=== PATIENT | female | born 1985 | race Caucasian/White ===

== ENCOUNTER 2016-10-24 07:19 | Inpatient (IN) | payer OTHER ==
[2016-10-24] MEDS ORDERED: Albuterol/Ipratropium RESP(NF) MDI (Combivent Respimat) INH PRN (09:17)
[2016-10-24] MEDS ORDERED: Penicillin G Potassium IV* 5,000,000 UNITS in NS 0.9% 100 ML* 100 ML IVPB ONE (09:19)
[2016-10-24] MEDS ORDERED: Dinoprostone* 10 MG VAG.SUPP VAGINAL ONE (09:40)
[2016-10-24 10:01] LABS: Hematocrit 35 % (35-47); Hemoglobin 12.1 g/dl (12.0-16.0); Mean Corpuscular HGB Conc 35 g/dl (31-36); Mean Corpuscular Hemoglobin 31 pg (27-31); Mean Corpuscular Volume 89 fL (80-97); Mean Platelet Volume 10 um3 (7.4-10.4); Red Cell Distribution Width 14 % (10.5-15); White Blood Count 13.5 10^3/ul (3.5-10.8)
[2016-10-24 10:03] LABS: Comments Flag Yes
[2016-10-24 13:36] LABS: Benzodiazepine Urine Screen None Detected (None Detect)
[2016-10-24] MEDS ORDERED: Calcium Carbonate CHEW TAB* 500 MG (TUMS) PO PRN (19:51)
[2016-10-24] MEDS ORDERED: Oxytocin in LR* 20 UNITS/1,000 ML BAG IVPB SCH (21:00)
[2016-10-24] MEDS ORDERED: OBEPIDURAL* 250 ML ONE (21:58)
[2016-10-24] MEDS ORDERED: Phenylephrine IV* 40 MCG/ML 10 ML SYRINGE IV PUSH PRN ×2 (23:15)
[2016-10-24] MEDS ORDERED: Sodium Citrate/Citric Acid* 15 ML UDC PO PRN (23:15)
[2016-10-24] MEDS ORDERED: Famotidine TAB* 20 MG PO PRN (23:15)
[2016-10-25] MEDS ORDERED: Dibucaine 1% 28.35 GM TUBE PR PRN (02:15)
[2016-10-25] MEDS ORDERED: Witch Hazel PAD* JAR TOPICAL PRN (02:15)
[2016-10-25] MEDS ORDERED: Oxytocin in LR* 20 UNITS/1,000 ML BAG IVPB SCH (03:00)
[2016-10-25] MEDS: OBEPIDURAL* 250 ML EPIDURAL SCH (05:40)
[2016-10-25] MEDS: Ibuprofen TAB* 600 MG PO PRN ×2 (06:44→21:01)
[2016-10-25] MEDS: Simethicone TAB* 80 MG TAB.CHEW PO SCH ×4 (07:55→21:01)
[2016-10-25] MEDS: Acetaminophen TAB* 325 MG PO PRN (07:55)
[2016-10-25] MEDS: Docusate CAP* 100 MG PO SCH ×3 (07:56→21:01)
[2016-10-25] MEDS ORDERED: Tetan/Diph/Pertus SYR(Tdap)* 0.5 ML SYR(BOOSTRIX) use SYR IM ONE (09:00)
[2016-10-25] MEDS ORDERED: Varicella Virus Vaccine Live* 0.5 ML VIAL SUBCUT ONE (09:00)
[2016-10-25] MEDS: oxyCODONE/Acetamin 5/325 MG* TAB PO PRN ×3 (12:45→21:01)
[2016-10-26] MEDS: oxyCODONE/Acetamin 5/325 MG* TAB PO PRN (01:02)
[2016-10-26] MEDS: OBEPIDURAL* 250 ML EPIDURAL SCH (03:16)
[2016-10-26 07:27] LABS: Hematocrit 34 % (35-47); Hemoglobin 11.5 g/dl (12.0-16.0); Mean Corpuscular HGB Conc 34 g/dl (31-36); Mean Corpuscular Hemoglobin 31 pg (27-31); Mean Corpuscular Volume 91 fL (80-97); Mean Platelet Volume 10 um3 (7.4-10.4); Red Blood Count 3.71 10^6/ul (4.0-5.4); Red Cell Distribution Width 14 % (10.5-15); White Blood Count 15.9 10^3/ul (3.5-10.8)
[2016-10-26] MEDS: Ferrous Gluconate TAB* 324 MG TAB PO SCH (07:50)
[2016-10-26] MEDS: Docusate CAP* 100 MG PO SCH ×3 (08:47→21:16)
[2016-10-26] MEDS: Ibuprofen TAB* 600 MG PO PRN ×3 (08:47→21:16)
[2016-10-26] MEDS: Acetaminophen TAB* 325 MG PO PRN (11:11)
[2016-10-26] MEDS ORDERED: oxyCODONE TAB* 5 MG TAB PO PRN (18:57)
[2016-10-27] MEDS: Ferrous Gluconate TAB* 324 MG TAB PO SCH (07:24)
[2016-10-27] MEDS: Penicillin G Potassium IV* 2,500,000 UNITS in NS 0.9% 100 ML* 100 ML IVPB SCH ×2 (07:35→07:37)
[2016-10-27] MEDS: Ibuprofen TAB* 600 MG PO PRN (08:02)
[2016-10-27] MEDS: Docusate CAP* 100 MG PO SCH (08:02)
[2016-10-27 08:26] VITALS: BP 122/76
== END 2016-10-27 10:13 | disposition home or self-care (01) | DRG 560 ==
LOC: MCHOBOUT 07:19 → MCHOB 09:18
PROVIDERS: ADMIT Obstetrics & Gynecology; ATTEND Obstetrics & Gynecology
PROC: 10E0XZZ Delivery of Products of Conception, External Approach (ICD-10-PCS; principal; 2016-10-25)
PROC: 3E033VJ Introduction of Other Hormone into Peripheral Vein, Percutaneous Approach (ICD-10-PCS; 2016-10-25)
PROC: 10907ZC Drainage of Amniotic Fluid, Therapeutic from Products of Conception, Via Natural or Artificial Opening (ICD-10-PCS; 2016-10-25)
DX: O36.5930 Maternal care for other known or suspected poor fetal growth, third trimester, not applicable or unspecified (principal); O99.344 Other mental disorders complicating childbirth; F32.9 Major depressive disorder, single episode, unspecified; O99.824 Streptococcus B carrier state complicating childbirth; O99.334 Smoking (tobacco) complicating childbirth; F17.210 Nicotine dependence, cigarettes, uncomplicated; O69.89X0 Labor and delivery complicated by other cord complications, not applicable or unspecified; Z3A.38 38 weeks gestation of pregnancy; Z37.0 Single live birth
CPT/HCPCS: 36415; 80307; 85025; 86850; 86900; 86901; 88307; 90715; A9270-GY; J2540

== ENCOUNTER → 2016-12-28 06:32 | Day surgery (SDC) | payer OTHER ==
[~2016-12-28 06:32] MED LIST: Buffered Lidocaine 1% SYRIN* 3 ML/SYR SYRINGE INTRADERM ONE; Bupivacaine 0.5% W/EPI SDV* 30 ML VIAL ONE; Dexamethasone IV* 4 MG/ML 1 ML (4 MG) IV SLOW PU ONE; Dexamethasone IV* 4 MG/ML 1 ML (4 MG) ONE; EPHEDrine (Pressors)* 50 MG/ML VIAL ONE; Famotidine IV* 10 MG/ML 2 ML (20 mg) IV ONE; Famotidine IV* 10 MG/ML 2 ML (20 mg) ONE; Glycopyrrolate IV* 0.2 MG/ML 1 ML VIAL ONE; Ibuprofen TAB* 600 MG PO PRN; Ketorolac INJ* 30 MG/ML 1 ML VIAL ONE; Levalbuterol 0.63MG/3ML NEB INH PRN; Lidocaine 2% PF* 5 ML VIAL ONE; Midazolam* 1 MG/ML 2 ML VIAL (2 MG) ONE; Ondansetron INJ* 2 MG/ML VIAL ONE; PROCHLORPERAZINE INJ 5 MG/ML 2 ML VIAL IV PRN; Propofol* 10 MG/ML 20 ML BTL IV PUSH ONE; Succinylcholine* 20 MG/ML 10 ML VIAL ONE; ceFAZolin 2 GM PREMIX(*) 2 GM/50 ML BAG IVPB ONE; fentaNYL* 50 MCG/ML 2 ML VIAL (100 MCG VIAL) IV PRN; fentaNYL* 50 MCG/ML 2 ML VIAL (100 MCG VIAL) ONE; oxyCODONE/Acetamin 5/325 MG* TAB PO PRN
[2016-12-28 09:53] VITALS: BP 110/68
--- NOTE | 2016-12-29 01:16 | OP ---
DATE OF OPERATION: 12/28/16 [facility] DATE OF : 87 SURGEON: Josiah Bruce MD STAFF FIELD ENGINEER: Brendan Morris MD ANESTHESIOLOGIST: Sole Godfrey MD ANESTHESIA: General endotracheal anesthesia. PRE-OP DIAGNOSIS: Multiparity, desires permanent sterilization. POST-OP DIAGNOSIS: Multiparity, desires permanent sterilization. OPERATIVE PROCEDURE: Laparoscopic tubal ligation. ESTIMATED BLOOD LOSS: Minimal, less than 20 cc. SPECIMENS: None. FLUIDS: Per Anesthesia. DRAINS: Choudhury catheter, 400 cc clear urine. FINDINGS: Midline uterus, normal-appearing fallopian tubes, and normal- appearing ovaries bilaterally. COMPLICATIONS: None. COUNTS: Sponge, lap, and needle count were correct x2. CONDITION: The patient tolerated well, brought to recovery room awake and in stable condition. DESCRIPTION OF PROCEDURE: The patient was brought to the operating room. When general anesthesia was found to be adequate, a Choudhury catheter was placed under sterile condition. The patient was prepped and draped in the usual sterile fashion in the dorsal supine position. A time-out was performed. Marcaine was injected into the infraumbilical fold. A 5 mm skin incision was made with the scalpel. Using the S-retractors, the fascia was identified, grasped between two Toño clamps, and incised. A 5 mm trocar was advanced. Correct placement was confirmed by the laparoscope. The abdomen was insufflated with CO2 gas. Marcaine was injected into the suprapubic site approximately 2 cm above the symphysis pubis in the midline. A 5 mm skin incision was made. A 5 mm trocar and sleeve were advanced under direct visualization. The abdomen and pelvis were examined. The uterus was midline and appeared normal. Both fallopian tubes were followed up to the fimbriated ends and appeared normal. The ovaries appeared normal. The appendix appeared normal. The right fallopian tube was followed out to the fimbriated end. It was grasped with a Kleppinger and cauterized in four separate locations. Attention was then turned to the patient 's left fallopian tube, which was followed out to the fimbriated end and also cauterized in four separate locations. The 5 mm trocar in the suprapubic location was was removed under direct visualization. The 5 mm sleeve was removed with the laparoscope in place from the infraumbilical site. The fascia was closed with a single suture of 0 Vicryl. The skin was closed with 4-0 Vicryl. Steri-Strips were applied. The patient tolerated the procedure well. Sponge, lap, and needle count were correct x2 and the patient was brought to recovery room awake and in stable condition. [id number]/[facility] #: [id number] MTDD
== END | disposition home or self-care (01) ==
LOC: OR 06:32
PROVIDERS: ATTEND Obstetrics & Gynecology
DX: Z30.2 Encounter for sterilization (principal); F17.210 Nicotine dependence, cigarettes, uncomplicated; J45.909 Unspecified asthma, uncomplicated; R01.1 Cardiac murmur, unspecified
CPT/HCPCS: J0330; J0690; J1100; J1885; J2250; J2405; J2704; J3010

== ENCOUNTER 2017-02-02 16:49 | Emergency (ER) | payer MEDICAID ==
[2017-02-02 17:06] VITALS: BP 111/72
--- NOTE | 2017-02-02 18:03 | UC ---
UC General HPI - HPI Summary HPI Summary: complaint of swollen lip that started to bother her 4 days ago had a small pimple that she popped then her lip started to swell and become painful constant aching pain took a percocet for pain without relief - History of Current Complaint Chief Complaint: UCGeneralIllness Stated Complaint: SWOLLEN LIP Time Seen by Provider: 02/02/17 17:55 Hx Obtained From: Patient - Allergy/Home Medications Allergies/Adverse Reactions: Allergies Allergy/AdvReac Type Severity Reaction Status Date / Time Hydrocodone [From Vicodin] AdvReac Intermediate Vomiting Verified 12/28/16 06:45 Home Medications: Home Medications oxyCODONE/Acetamin 10/325(NF) [Percocet 10/325 (NF)] 02/02/17 [History] PMH/Surg Hx/FS Hx/Imm Hx Previously Healthy: Yes Cardiovascular History Of: Reports: Cardiac Disorders - Heart Murmur, Hypertension - orthostatic BP Denies: Pacemaker/ICD Respiratory History Of: Reports: Asthma - PRN INHALER Psychological History Of: Reports: Anxiety - NO MEDICATION AT THIS TIME, Depression - NO MEDICATION AT THIS TIME Denies: Bipolar Disorder, Schizophrenia Other History Of: Negative For: Anticoagulant Therapy - Surgical History Surgical History: None - Family History Known Family History: Positive: Unknown Negative: Hypertension, Diabetes - Social History Occupation: Employed Full-time Lives: With Family Alcohol Use: Weekly Alcohol Amount: recovering alcoholic Substance Use Type: Marijuana Substance Use Comment - Amount & Last Used: 2-4 months prior to delivery Smoking Status (MU): Light Every Day Tobacco Smoker Type: Cigarettes Amount Used/How Often: 1/2 PPD X 15+ YEARS Have You Smoked in the Last Year: Yes Household Exposure Type: Cigarettes Cessation Counseling: Patient Advised to Stop - Immunization History Most Recent Influenza Vaccination: declined prenatally Most Recent Tetanus Shot: unknown, declined prenatally, rev'd c pt Most Recent Pneumonia Vaccination: denied, rev'd c pt Review of Systems Constitutional: Negative Skin: Other - swollen lip Eyes: Negative ENT: Negative Respiratory: Negative Cardiovascular: Negative Gastrointestinal: Negative Genitourinary: Negative Motor: Negative Neurovascular: Negative Musculoskeletal: Negative Neurological: Negative Psychological: Negative All Other Systems Reviewed And Are Negative: Yes Physical Exam Triage Information Reviewed: Yes Appearance: No Pain Distress, Well-Nourished Vital Signs: Initial Vital Signs Temp 98.8 F 02/02/17 16:58 Pulse 55 02/02/17 16:58 Resp 16 02/02/17 16:58 BP 111/72 02/02/17 16:58 Pulse Ox 97 02/02/17 16:58 Vital Signs Reviewed: Yes Eyes: Positive: Conjunctiva Clear ENT: Positive: Pharynx normal, TMs normal Neck: Positive: No Lymphadenopathy Respiratory: Positive: Lungs clear, Normal breath sounds, No respiratory distress Cardiovascular: Positive: RRR, No Murmur, Pulses Normal Abdomen Description: Positive: Nontender, No Organomegaly, Soft Bowel Sounds: Positive: Present Musculoskeletal Exam: Normal Neurological Exam: Normal Psychological Exam: Normal Skin: Positive: Other - left lower lip edema and erythema which measures 3-4cm Course/Dx - Differential Dx - Multi-Symptom Provider Diagnoses: lower lip cellulitis Discharge - Discharge Plan Condition: Stable Disposition: HOME Prescriptions: Amoxicillin/Clavulanate TAB* [Augmentin TAB 875*] 875 mg PO BID #20 tab Ibuprofen TAB* [Motrin TAB* 800 MG] 800 mg PO Q8H #30 tab Patient Education Materials: Cellulitis (ED) Referrals: No Primary Care Phys,NOPCP [Primary Care Provider] - [facility] [Outside] Additional Instructions: Please take antibiotic as directed Increase fluids and rest Take acetaminophen or ibuprofen for fever or pain If swelling continues or you get a fever please return to urgent care Please review your discharge instructions. If your symptoms do not improve please call your primary care provider or return to urgent care.
== END 2017-02-02 18:32 | disposition home or self-care (01) ==
LOC: UCEAST 16:49
DX: K13.0 Diseases of lips (principal); I10 Essential (primary) hypertension; J45.909 Unspecified asthma, uncomplicated; F41.8 Other specified anxiety disorders; Z88.5 Allergy status to narcotic agent; F17.210 Nicotine dependence, cigarettes, uncomplicated
CPT/HCPCS: 99212; G0463

== ENCOUNTER 2017-02-05 19:05 | Emergency (ER) | payer MEDICAID, OTHER ==
[2017-02-05] MEDS ORDERED: NS 0.9% 1000 ML* 1,000 ML IV ONE (20:11)
[2017-02-05] MEDS ORDERED: Ondansetron INJ* 2 MG/ML VIAL IV ONE (20:11)
[2017-02-05 21:04] LABS: Hematocrit 45 % (35-47); Hemoglobin 15.1 g/dl (12.0-16.0); Mean Corpuscular HGB Conc 34 g/dl (31-36); Mean Corpuscular Hemoglobin 29 pg (27-31); Mean Corpuscular Volume 87 fL (80-97); Mean Platelet Volume 10 um3 (7.4-10.4); Red Blood Count 5.14 10^6/ul (4.0-5.4); Red Cell Distribution Width 14 % (10.5-15); White Blood Count 8.6 10^3/ul (3.5-10.8)
[2017-02-05 21:20] LABS: ALT 6 U/L (7-52); AST 14 U/L (13-39); Albumin 4.3 g/dL (3.2-5.2); Alkaline Phosphatase 74 U/L (34-104); Anion Gap 7 mmol/L (2-11); BUN/Creatinine Ratio 8.3 (8-20); Blood Urea Nitrogen 7 mg/dL (6-24); CO2 Carbon Dioxide 25 mmol/L (22-32); Calcium 9.6 mg/dL (8.6-10.3); Chloride 105 mmol/L (101-111); EGFR African American 102.4 (>60); EGFR Non-African American 79.6 (>60); Globulin 2.7 g/dL (2-4); Glucose 124 mg/dL (70-100); Lipase < 10 U/L (11.0-82.0); Potassium 3.1 mmol/L (3.5-5.0); Sodium 137 mmol/L (133-145)
[2017-02-05 22:36] VITALS: BP 130/60
--- NOTE | 2017-02-05 22:42 | ED ---
Aurelio Mosher Michael, scribed for Candi Velez MD on 02/05/17 at 2001 . Abdominal Pain/Female - HPI Summary HPI Summary: 31 y/o female comes to the ED presenting with n/v for the past 3 days. TShcamille attributes her symptoms to taking augmentin for cellulitis of the lower right lip. She was previously [facility] on [facility]/02/[facility]ul[facility]. The pt denies dizziness, SOB, and fever. The PMHx is significant for asthma and orthostatic BP. - History of Current Complaint Chief Complaint: EDAbdPain Stated Complaint: N/V Time Seen by Provider: 02/05/17 19:45 Hx Obtained From: Patient, Medical Records Hx Last Menstrual Period: January 19 Onset/Duration: Sudden Onset, Lasting Days, Still Present Timing: Intermittent Episode Lasting Severity Initially: Mild Severity Currently: Mild Pain Intensity: 0 Pain Scale Used: 0-10 Numeric Location: Diffuse Radiates: No Aggravating Factor(s): Nothing Alleviating Factor(s): Nothing Associated Signs and Symptoms: Positive: Negative - SOB, Nausea, Vomiting, Other : - abd pain. Negative: Fever, Dizzy Allergies/Adverse Reactions: Allergies Allergy/AdvReac Type Severity Reaction Status Date / Time Hydrocodone [From Vicodin] AdvReac Intermediate Vomiting Verified 12/28/16 06:45 PMH/Surg Hx/FS Hx/Imm Hx Endocrine/Hematology History: Denies: Hx Anticoagulant Therapy Cardiovascular History: Reports: Hx Hypertension - orthostatic BP, Other Cardiovascular Problems/Disorders - heart murmur Denies: Hx Pacemaker/ICD Respiratory History: Reports: Hx Asthma - PRN INHALER Sensory History: Denies: Hx Contacts or Glasses, Hx Hearing Aid Opthamlomology History: Denies: Hx Contacts or Glasses Neurological History: Reports: Hx Headaches - TREATS WITH REST Psychiatric History: Reports: Hx Anxiety - NO MEDICATION AT THIS TIME, Hx Depression - NO MEDICATION AT THIS TIME, Hx Community Mental Health Tx - Family and Children[facility] [place], [place], Hx Suicide Attempt - Once, at age 13., Hx Substance Abuse - Mom tested positive for Cannabis. Baby also., Other Psychiatric Issues/Disorders - Schizoid Personality Disorder Denies: Hx Attention Deficit Hyperactivity Disorder, Hx Eating Disorder, Hx Panic Disorder, Hx Post Traumatic Stress Disorder, Hx Inpatient Treatment, Hx Schizophrenia, Hx Bipolar Disorder, Hx of Violent Episodes Against Others Infectious Disease History: Denies: History Other Infectious Disease, Traveled Outside the [place] in Last 30 Days - Family History Known Family History: Negative: Hypertension, Diabetes - Social History Occupation: Employed Full-time Lives: With Family Alcohol Use: Weekly Alcohol Amount: recovering alcoholic Substance Use Type: Reports: Marijuana Substance Use Comment - Amount & Last Used: 2-4 months prior to delivery Smoking Status (MU): Light Every Day Tobacco Smoker Type: Cigarettes Amount Used/How Often: 1/2 PPD X 15+ YEARS Have You Smoked in the Last Year: Yes Review of Systems Negative: Fever Negative: Shortness Of Breath Positive: Vomiting, Nausea All Other Systems Reviewed And Are Negative: Yes Physical Exam Triage Information Reviewed: Yes Vital Signs On Initial Exam: Initial Vitals Temp Pulse Resp BP Pulse Ox 98.2 F 72 18 130/73 98 02/05/17 19:18 02/05/17 19:18 02/05/17 19:18 02/05/17 19:18 02/05/17 19:18 Vital Signs Reviewed: Yes Appearance: Positive: Well-Appearing - non toxic, No Pain Distress, Well- Nourished Skin: Positive: Warm, Skin Color Reflects Adequate Perfusion, Dry, Other - edema right lower lip with no open wound or drainage Head/Face: Positive: Normal Head/Face Inspection Eyes: Positive: EOMI, ALON, Conjunctiva Clear ENT: Positive: Pharynx normal, TMs normal Neck: Positive: Supple, Nontender Respiratory/Lung Sounds: Positive: Clear to Auscultation, Breath Sounds Present. Negative: Rales, Rhonchi, Wheezes Cardiovascular: Positive: RRR, Pulses are Symmetrical in both Upper and Lower Extremities. Negative: Murmur, Rub Abdomen Description: Positive: Nontender, No Organomegaly, Soft. Negative: Distended, Guarding, Peritoneal Signs Bowel Sounds: Positive: Present Musculoskeletal: Positive: Strength/ROM Intact Neurological: Positive: Sensory/Motor Intact, Alert, Oriented to Person Place, Time, Normal Gait. Negative: Cerebellar Dysfunction Psychiatric: Positive: Affect/Mood Appropriate Diagnostics - Vital Signs Vital Signs Temp Pulse Resp BP Pulse Ox 02/05/17 19:18 98.2 F 72 18 130/73 98 - Laboratory Lab Results: Lab Results 02/05/17 02/05/17 02/05/17 Range/Units 20:45 20:45 20:45 WBC 8.6 (3.5-10.8) 10^3/ul RBC 5.14 (4.0-5.4) 10^6/ul Hgb 15.1 (12.0-16.0) g/dl Hct 45 (35-47) % MCV 87 (80-97) fL MCH 29 (27-31) pg MCHC 34 (31-36) g/dl RDW 14 (10.5-15) % Plt Count 169 (150-450) 10^3/ul MPV 10 (7.4-10.4) um3 Neut % (Auto) 58.3 (38-83) % Lymph % (Auto) 29.3 (25-47) % Jones % (Auto) 7.4 (1-9) % Eos % (Auto) 3.8 (0-6) % Baso % (Auto) 1.2 (0-2) % Absolute Neuts (auto) 5.0 (1.5-7.7) 10^3/ul Absolute Lymphs (auto) 2.5 (1.0-4.8) 10^3/ul Absolute Monos (auto) 0.6 (0-0.8) 10^3/ul Absolute Eos (auto) 0.3 (0-0.6) 10^3/ul Absolute Basos (auto) 0.1 (0-0.2) 10^3/ul Absolute Nucleated RBC 0.01 10^3/ul Nucleated RBC % 0.1 Sodium 137 (133-145) mmol/L Potassium 3.1 L (3.5-5.0) mmol/L Chloride 105 (101-111) mmol/L Carbon Dioxide 25 (22-32) mmol/L Anion Gap 7 (2-11) mmol/L BUN 7 (6-24) mg/dL Creatinine 0.84 (0.51-0.95) mg/dL Est GFR ( Amer) 102.4 (>60) Est GFR (Non-Af Amer) 79.6 (>60) BUN/Creatinine Ratio 8.3 (8-20) Glucose 124 H (70-100) mg/dL Lactic Acid 1.9 (0.5-2.0) mmol/L Calcium 9.6 (8.6-10.3) mg/dL Total Bilirubin 0.40 (0.2-1.0) mg/dL AST 14 (13-39) U/L ALT 6 L (7-52) U/L Alkaline Phosphatase 74 (34-104) U/L Total Protein 7.0 (6.4-8.9) g/dL Albumin 4.3 (3.2-5.2) g/dL Globulin 2.7 (2-4) g/dL Albumin/Globulin Ratio 1.6 (1-3) Lipase < 10 L (11.0-82.0) U/L Result Diagrams: 02/05/17 20:45 02/05/17 20:45 Lab Statement: Any lab studies that have been ordered have been reviewed, and results considered in the medical decision making process. Abdominal Pain Fem Course/Dx - Course Course Of Treatment: Discussed with the patient about her treatment plan. - Diagnoses Provider Diagnoses: Medication reaction Discharge - Discharge Plan Condition: Stable Disposition: HOME Prescriptions: Clindamycin CAP* [Cleocin 150 MG CAP*] 150 mg PO Q6H #28 cap Patient Education Materials: Antibiotic Medication Allergy (ED) Referrals: [facility] [place] [facility] [Outside] Additional Instructions: You should follow up with [facility] [place] Physician Referral within the next 2-3 days. The documentation as recorded by the Aurelio aly Michael accurately reflects the service I personally performed and the decisions made by Rosie valdes Afoma Frances, MD.
== END 2017-02-05 22:21 | disposition home or self-care (01) ==
LOC: ED 19:05
DX: T36.0X5A Adverse effect of penicillins, initial encounter (principal); R11.2 Nausea with vomiting, unspecified; Y92.9 Unspecified place or not applicable
CPT/HCPCS: 36415; 80053; 83605; 83690; 85025; 96374; 99282; J2405

== ENCOUNTER 2017-03-21 18:24 | Emergency (ER) | payer OTHER ==
[2017-03-21 18:32] VITALS: BP 103/64
--- NOTE | 2017-03-21 18:44 | UC ---
Asthma HPI - HPI Summary HPI Summary: PT HAS HAD INTERMITTENT PROBLEMS WITH HER ASTHMA FOR ABOUT A YEAR, BUT FOR PAST 1 WEEK HAS HAD WORSENING SOB AT REST. IS WHEEZING. USING COMBIVENT INHALER WITHOUT MUCH RELIEF. NO FEVER. DOES NOT HAVE A PCP. HAS NOT HAD MEDICAL ATTENTION IN OVER A YEAR. - History of Current Complaint Chief Complaint: UCRespiratory Stated Complaint: ASTHMA Time Seen by Provider: 03/21/17 18:36 Hx Obtained From: Patient, Family/Laborer High Density Press - Hx Last Menstrual Period: 3 WEEKS AGO Onset/Duration: Gradual Onset, Lasting Weeks, Still Present Timing: Constant Initial Severity: Moderate Current Severity: Moderate Pain Intensity: 0 Pain Scale Used: 0-10 Numeric Location/Character: Cough (Productive) Aggravating: Exertion, Smoke Alleviating: Nothing Associated Signs and Symptoms: Positive: Shortness of Breath - Allergy/Home Medications Allergies/Adverse Reactions: Allergies Allergy/AdvReac Type Severity Reaction Status Date / Time Amoxicillin Allergy Severe Itching, Verified 03/21/17 18:33 RASH, BREATHING PROBLEM Hydrocodone [From Vicodin] AdvReac Intermediate Vomiting Verified 03/21/17 18:33 PMH/Surg Hx/FS Hx/Imm Hx Respiratory History: Asthma Other History Of: Negative For: Anticoagulant Therapy - Surgical History Surgical History: Yes Surgery Procedure, Year, and Place: TUBAL LIGATION - Family History Known Family History: Negative: Hypertension, Diabetes Family History: ASTHMA - Social History Alcohol Use: Occasionally Alcohol Amount: recovering alcoholic Substance Use Type: None Substance Use Comment - Amount & Last Used: 2-4 months prior to delivery Smoking Status (MU): Current Every Day Smoker Type: Cigarettes Amount Used/How Often: 1/2 PPD Have You Smoked in the Last Year: Yes Household Exposure Type: Cigarettes - Immunization History Most Recent Influenza Vaccination: declined prenatally Most Recent Tetanus Shot: unknown, declined prenatally, rev'd c pt Most Recent Pneumonia Vaccination: denied, rev'd c pt Review of Systems Constitutional: Negative Respiratory: Shortness Of Breath, Cough Cardiovascular: Negative Gastrointestinal: Negative All Other Systems Reviewed And Are Negative: Yes Physical Exam Triage Information Reviewed: Yes Appearance: No Pain Distress, Well-Nourished, Other: - BREATHING HEAVILY Vital Signs: Initial Vital Signs Temp 98.2 F 03/21/17 18:26 Pulse 76 03/21/17 18:26 Resp 24 03/21/17 18:26 BP 103/64 03/21/17 18:26 Pulse Ox 100 03/21/17 18:26 Eyes: Positive: Conjunctiva Clear ENT: Positive: Hearing grossly normal Neck: Positive: Supple, Nontender, No Lymphadenopathy Respiratory: Positive: No respiratory distress, Decreased breath sounds, Accessory muscle use, Wheezing - DIFFUSELY Cardiovascular Exam: Normal Abdomen Description: Positive: Soft Musculoskeletal: Positive: No Edema Neurological: Positive: Alert Psychological: Positive: Normal Response To Family, Age Appropriate Behavior Skin: Negative: rashes Re-Evaluation - Re-Evaluation First Eval Re-Evaluation Time: 19:55 - MUCH IMPROVED AFTER DUONEB. WHEEZE ALMOST COMPLETELY RESOLVED. PT BREATHING EASIER. NO ACCESSORY MUSCLE USE Change: Improved Asthma Course/Dx - Differential Dx/Diagnosis Provider Diagnoses: ASTHMA EXACERBATION Discharge - Discharge Plan Condition: Stable Disposition: HOME Prescriptions: Albuterol 2.5MG/3ML (0.083%)* [Ventolin 2.5 MG/3 ML NEB.VARINDER*] 2.5 mg INH Q4H PRN #1 box PRN Reason: Wheezing Albuterol HFA INHALER* [Ventolin HFA Inhaler*] 2 puff INH Q4H PRN #1 mdi PRN Reason: Shortness Of Breath Albuterol/Ipratropium RESP(NF) [Combivent Respimat(NF)] 1 aer IN Q6H #1 aer Respiratory Therapy Supplies [Nebulizer Kit/Tubing/Mout] 1 kit .SEE ORDER . DIRECTED #1 kit predniSONE TAB* [Deltasone TAB*] 50 mg PO DAILY #5 tab Patient Education Materials: Asthma (ED), Wheezing (ED) Referrals: No Primary Care Phys,NOPCP [Primary Care Provider] - Additional Instructions: YOU NEED PRIMARY CARE FOLLOW-UP TO HELP GET YOUR ASTHMA UNDER BETTER CONTROL. CALL THE NUMBER BELOW FOR ASSISTANCE IN ESTABLISHING WITH A PCP An additional resource available to assist in finding the appropriate physician for your health care needs is the [facility] ([facility]). You may contact them by calling [phone]. GO TO THE ER IF YOUR SYMPTOMS WORSEN.
[2017-03-21] MEDS ORDERED: Albuterol 2.5 MG/3 ML NEB.SOL* (0.083%) INH ONE (18:49)
[2017-03-21] MEDS ORDERED: predniSONE TAB* 20 MG PO ONE (18:49)
[2017-03-21] MEDS ORDERED: Ipratropium 0.5MG/2.5ML NEB* 0.5 MG/2.5 ML NEB.SOLN INH ONE (18:49)
== END 2017-03-21 20:05 | disposition home or self-care (01) ==
LOC: UCEAST 18:24
DX: J45.901 Unspecified asthma with (acute) exacerbation (principal); F17.210 Nicotine dependence, cigarettes, uncomplicated; Z88.0 Allergy status to penicillin
CPT/HCPCS: 99212; G0463; J7512; J7644

== ENCOUNTER 2017-12-17 17:30 | Emergency (ER) | payer OTHER ==
[2017-12-17 20:10] VITALS: BP 0/0
== END 2017-12-17 20:08 | disposition left against medical advice (07) ==
LOC: ED 17:30
DX: R11.2 Nausea with vomiting, unspecified (principal); Z53.20 Procedure and treatment not carried out because of patient's decision for unspecified reasons
CPT/HCPCS: 99281

== ENCOUNTER → 2019-02-06 14:09 | Emergency (ER) | payer OTHER ==
[~2019-02-06 14:09] MED LIST changes: -Buffered Lidocaine 1% SYRIN* 3 ML/SYR SYRINGE INTRADERM ONE; -Bupivacaine 0.5% W/EPI SDV* 30 ML VIAL ONE; -Dexamethasone IV* 4 MG/ML 1 ML (4 MG) IV SLOW PU ONE; -Dexamethasone IV* 4 MG/ML 1 ML (4 MG) ONE; -EPHEDrine (Pressors)* 50 MG/ML VIAL ONE; -Famotidine IV* 10 MG/ML 2 ML (20 mg) IV ONE; -Famotidine IV* 10 MG/ML 2 ML (20 mg) ONE; -Glycopyrrolate IV* 0.2 MG/ML 1 ML VIAL ONE; +Ibuprofen TAB* 600 MG PO ONE; -Ibuprofen TAB* 600 MG PO PRN; +Iohexol 300* (CONTRAST) 10 ML SDV IV ONE; -Ketorolac INJ* 30 MG/ML 1 ML VIAL ONE; -Levalbuterol 0.63MG/3ML NEB INH PRN; -Lidocaine 2% PF* 5 ML VIAL ONE; -Midazolam* 1 MG/ML 2 ML VIAL (2 MG) ONE; +Morphine 4 MG/ML VIAL (1 ml) 4 MG/ML VIAL IV ONE; +NS 0.9% 1000 ML** 1,000 ML IV ONE; +Ondansetron INJ* 2 MG/ML VIAL IV ONE; -Ondansetron INJ* 2 MG/ML VIAL ONE; -PROCHLORPERAZINE INJ 5 MG/ML 2 ML VIAL IV PRN; -Propofol* 10 MG/ML 20 ML BTL IV PUSH ONE; -Succinylcholine* 20 MG/ML 10 ML VIAL ONE; -ceFAZolin 2 GM PREMIX(*) 2 GM/50 ML BAG IVPB ONE; -fentaNYL* 50 MCG/ML 2 ML VIAL (100 MCG VIAL) IV PRN; -fentaNYL* 50 MCG/ML 2 ML VIAL (100 MCG VIAL) ONE; -oxyCODONE/Acetamin 5/325 MG* TAB PO PRN
--- NOTE | 2019-02-06 14:46 | ED ---
Abdominal Pain/Female - History of Current Complaint Chief Complaint: EDAbdPain Stated Complaint: LOWER ABD PAIN LOW BACK PAIN PER EMS Time Seen by Provider: 02/06/19 14:28 Hx Obtained From: Patient Hx Last Menstrual Period: 3 WEEKS AGO Onset/Duration: Sudden Onset, Lasting Hours - since 0300 this morning, Still Present Timing: Constant Severity Initially: Moderate Severity Currently: Moderate Pain Intensity: 7 Pain Scale Used: 0-10 Numeric Location: Discrete At: RLQ, Other - rectal Aggravating Factor(s): Other: - palpation Alleviating Factor(s): Nothing Associated Signs and Symptoms: Positive: Constipation. Negative: Nausea, Vomiting, Diarrhea Allergies/Adverse Reactions: Allergies Allergy/AdvReac Type Severity Reaction Status Date / Time amoxicillin Allergy Rash Verified 12/17/17 17:37 hydrocodone AdvReac Vomiting Verified 12/17/17 17:37 PMH/Surg Hx/FS Hx/Imm Hx Endocrine/Hematology History: Denies: Hx Anticoagulant Therapy Cardiovascular History: Reports: Hx Hypertension - orthostatic BP, Other Cardiovascular Problems/Disorders - heart murmur Denies: Hx Pacemaker/ICD Respiratory History: Reports: Hx Asthma, Hx Chronic Obstructive Pulmonary Disease (COPD) Sensory History: Denies: Hx Contacts or Glasses, Hx Hearing Aid Opthamlomology History: Denies: Hx Contacts or Glasses Neurological History: Reports: Hx Headaches - TREATS WITH REST Psychiatric History: Reports: Hx Anxiety - NO MEDICATION AT THIS TIME, Hx Depression - NO MEDICATION AT THIS TIME, Hx Community Mental Health Tx - Family and [facility] [place], [place], Hx Suicide Attempt - Once, at age 13., Hx Substance Abuse - Mom tested positive for Cannabis. Baby also., Other Psychiatric Issues/Disorders - Schizoid Personality Disorder Denies: Hx Attention Deficit Hyperactivity Disorder, Hx Eating Disorder, Hx Panic Disorder, Hx Post Traumatic Stress Disorder, Hx Inpatient Treatment, Hx Schizophrenia, Hx Bipolar Disorder, Hx of Violent Episodes Against Others - Surgical History Surgery Procedure, Year, and Place: TUBAL LIGATION Infectious Disease History: No Infectious Disease History: Reports: Hx of Known/Suspected MRSA Denies: History Other Infectious Disease, Traveled Outside the in Last 30 Days - Family History Known Family History: Positive: Other Negative: Hypertension, Diabetes Family History: ASTHMA - Social History Alcohol Use: Occasionally Alcohol Amount: recovering alcoholic Substance Use Type: Reports: None Substance Use Comment - Amount & Last Used: 2-4 months prior to delivery Hx Tobacco Use: Yes Smoking Status (MU): Current Every Day Smoker Type: Cigarettes Amount Used/How Often: 1/2 PPD Have You Smoked in the Last Year: Yes Review of Systems Positive: Abdominal Pain - RLQ , Other - rectal pain and constipation for 4 days. Negative: Vomiting, Diarrhea, Nausea Negative: dysuria, hematuria Negative: Edema Negative: Rash All Other Systems Reviewed And Are Negative: Yes Physical Exam - Summary Physical Exam Summary: Constitutional: Well-developed, Well-nourished, Alert. (-) Distressed Skin: Warm, Dry HENT: Normocephalic; Atraumatic Eyes: Conjunctiva normal Neck: Musculoskeletal ROM normal neck. (-) JVD, (-) Stridor, (-) Tracheal deviation Cardio: Rhythm regular, rate normal, Heart sounds normal; Intact distal pulses; The pedal pulses are 2+ and symmetric. Radial pulses are 2+ and symmetric. (-) Murmur Pulmonary/Chest wall: Effort normal. (-) Respiratory distress, (-) Wheezes, (-) Rales Abd: Soft, (-) tenderness, (-) Distension, (-) Guarding, (-) Rebound Musculoskeletal: (-) Edema Lymph: (-) Cervical adenopathy Neuro: Alert, Oriented x3 Psych: Mood and affect Normal Triage Information Reviewed: Yes Vital Signs On Initial Exam: Initial Vitals Temp Pulse Resp BP Pulse Ox 98.0 F 59 16 141/88 98 02/06/19 14:19 02/06/19 14:19 02/06/19 14:19 02/06/19 14:19 02/06/19 14:19 Vital Signs Reviewed: Yes Diagnostics - Vital Signs Vital Signs Temp Pulse Resp BP Pulse Ox 02/06/19 14:19 98.0 F 59 16 141/88 98 - Laboratory Lab Statement: Any lab studies that have been ordered have been reviewed, and results considered in the medical decision making process. Abdominal Pain Fem Course/Dx - Course Course Of Treatment: This patient is a 33 year old F presenting to ED with a chief complaint of RLQ abdominal pain and rectal pain since 0300 this morning. Discharge - Sign-Out/Discharge Documenting (check all that apply): Patient Departure Patient Received Moderate/Deep Sedation with Procedure: No - Discharge Plan Referrals: Teddy Diaz MD [Primary Care Provider] - - Attestation Statements Document Initiated by Scribe: Yes Documenting Scribe: Dequan Car Provider For Whom Scribe is Documenting (Include Credential): Angel Coombs MD Scribe Attestation: IDequan, scribed for Angel Coombs MD on 02/06/19 at 1456.
[2019-02-06 14:48] LABS: ABS Basophils 0.1 10^3/ul (0-0.2); ABS Eosinophils 0.2 10^3/ul (0-0.6); ABS Lymphocytes 2.2 10^3/ul (1.0-4.8); ABS Monocytes 0.6 10^3/ul (0-0.8); Eosinophil % 1.4 %; Hematocrit 44 % (35-47); Hemoglobin 14.7 g/dL (12.0-16.0); Lymphocyte % 17.8 %; Mean Corpuscular HGB Conc 33 g/dL (31-36); Mean Corpuscular Hemoglobin 29 pg (27-31); Mean Corpuscular Volume 88 fL (80-97); Mean Platelet Volume 9.5 fL (7.4-10.4); Nucleated Red Blood Cells % 0.1; Platelet Count 165 10^3/uL (150-450); Red Cell Distribution Width 14 % (10.5-15); White Blood Count 12.1 10^3/uL (3.5-10.8)
[2019-02-06 15:11] LABS: Albumin 4.1 g/dL (3.2-5.2); Albumin/Globulin Ratio 1.9 (1-3); BUN/Creatinine Ratio 9.8 (8-20); C Reactive Protein 6.61 mg/L (<8.01); EGFR African American 97.8 (>60); EGFR Non-African American 80.8 (>60); Globulin 2.2 g/dL (2-4); Potassium 4.1 mmol/L (3.5-5.0); Total Bilirubin 0.2 mg/dL (0.2-1.0); Total Protein 6.3 g/dL (6.4-8.9)
--- NOTE | 2019-02-06 15:14 | ED ---
GI/ HPI - HPI Summary HPI Summary: This patient is a 33 year old F presenting to ED with a chief complaint of rectal pain since 0300 this morning before going to bed. The CC is described as gradually worsened since onset and was extreme after waking up this morning. The patient rates the pain 7/10 in severity. Symptoms aggravated by nothing. Symptoms alleviated by not thinking about her pain. Patient reports constipation for 4 days and that is it abnormal for her to go a few days without a BM and lower abdominal pain. Patient denies N/V/D or any trauma to the rectal area. PMHx of COPD and asthma; denies hx of DM, Crohns disease, and hemorrhoids. - History of Current Complaint Chief Complaint: EDAbdPain Time Seen by Provider: 02/06/19 14:28 Stated Complaint: LOWER ABD PAIN LOW BACK PAIN PER EMS Hx Obtained From: Patient Hx Last Menstrual Period: 3 WEEKS AGO Onset/Duration: Started Hours Ago, Still Present Timing: Constant, Lasting Hours Severity: Moderate Current Severity: Moderate Pain Intensity: 7 Location of Pain: Rectal, Other - lower abdominal pain Associated Signs and Symptoms: Positive: Rectal Pain, Constipation. Negative: Nausea, Vomiting, Diarrhea Aggravating Factor(s): Nothing - Allergy/Home Medications Allergies/Adverse Reactions: Allergies Allergy/AdvReac Type Severity Reaction Status Date / Time amoxicillin Allergy Rash Verified 02/06/19 14:43 hydrocodone AdvReac Vomiting Verified 02/06/19 14:43 PMH/Surg Hx/FS Hx/Imm Hx Endocrine/Hematology History: Denies: Hx Anticoagulant Therapy Cardiovascular History: Reports: Hx Hypertension - orthostatic BP, Other Cardiovascular Problems/Disorders - heart murmur Denies: Hx Pacemaker/ICD Respiratory History: Reports: Hx Asthma, Hx Chronic Obstructive Pulmonary Disease (COPD) Sensory History: Denies: Hx Contacts or Glasses Opthamlomology History: Denies: Hx Contacts or Glasses Neurological History: Reports: Hx Headaches - TREATS WITH REST Psychiatric History: Reports: Hx Anxiety - NO MEDICATION AT THIS TIME, Hx Depression - NO MEDICATION AT THIS TIME, Hx Community Mental Health Tx - [facility] [place], Hx Suicide Attempt - Once, at age 13., Hx Substance Abuse - Mom tested positive for Cannabis. Baby also., Other Psychiatric Issues/Disorders - Schizoid Personality Disorder Denies: Hx Attention Deficit Hyperactivity Disorder, Hx Eating Disorder, Hx Panic Disorder, Hx Post Traumatic Stress Disorder, Hx Inpatient Treatment, Hx Schizophrenia, Hx Bipolar Disorder, Hx of Violent Episodes Against Others - Surgical History Surgery Procedure, Year, and Place: TUBAL LIGATION Infectious Disease History: No Infectious Disease History: Reports: Hx of Known/Suspected MRSA Denies: History Other Infectious Disease, Traveled Outside the [place] in Last 30 Days - Family History Known Family History: Negative: Hypertension, Diabetes Family History: ASTHMA - Social History Alcohol Use: None Alcohol Amount: recovering alcoholic Substance Use Type: Reports: Other Substance Use Comment - Amount & Last Used: cbd Hx Tobacco Use: Yes Smoking Status (MU): Heavy Every Day Tobacco Smoker Type: Cigarettes Amount Used/How Often: 1/2 PPD Have You Smoked in the Last Year: Yes Review of Systems Negative: Fever, Chills Negative: Erythema Negative: Sore Throat Negative: Chest Pain Negative: Shortness Of Breath, Cough Positive: Abdominal Pain - lower abdominal pain, Other - rectal pain, constipation; denies trauma to rectal area. Negative: Vomiting, Nausea Negative: dysuria, hematuria Negative: Myalgia, Edema Negative: Rash Neurological: Other - denies dizziness All Other Systems Reviewed And Are Negative: Yes Physical Exam - Summary Physical Exam Summary: Constitutional: Well-developed, Well-nourished, Alert. (-) Distressed Skin: Warm, Dry HENT: Normocephalic; Atraumatic Eyes: Conjunctiva normal Neck: Musculoskeletal ROM normal neck. (-) JVD, (-) Stridor, (-) Tracheal deviation Cardio: Rhythm regular, rate normal, Heart sounds normal; Intact distal pulses; The pedal pulses are 2+ and symmetric. Radial pulses are 2+ and symmetric. (-) Murmur Pulmonary/Chest wall: Effort normal. 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 Anterior wall of the rectum is swollen and tender to palpation. No fissures, induration, or fluctuance externally. Triage Information Reviewed: Yes Vital Signs On Initial Exam: Initial Vitals Temp Pulse Resp BP Pulse Ox 98.0 F 59 16 141/88 98 05/16/19 14:19 02/06/19 14:19 02/06/19 14:19 02/06/19 14:19 02/06/19 14:19 Vital Signs Reviewed: Yes Diagnostics - Vital Signs Vital Signs Temp Pulse Resp BP Pulse Ox 02/06/19 14:22 66 100 02/06/19 14:19 98.0 F 59 16 141/88 98 - Laboratory Lab Results: Lab Results 02/06/19 Range/Units 14:38 WBC 12.1 H (3.5-10.8) 10^3/uL RBC 5.00 H (3.70-4.87) 10^6 /uL Hgb 14.7 (12.0-16.0) g/dL Hct 44 (35-47) % MCV 88 (80-97) fL MCH 29 (27-31) pg MCHC 33 (31-36) g/dL RDW 14 (10.5-15) % Plt Count 165 (150-450) 10^3/uL MPV 9.5 (7.4-10.4) fL Neut % (Auto) 74.5 % Lymph % (Auto) 17.8 % [place] % (Auto) 5.3 % Eos % (Auto) 1.4 % Baso % (Auto) 1.0 % Absolute Neuts (auto) 9.0 H (1.5-7.7) 10^3/ul Absolute Lymphs (auto) 2.2 (1.0-4.8) 10^3/ul Absolute Monos (auto) 0.6 (0-0.8) 10^3/ul Absolute Eos (auto) 0.2 (0-0.6) 10^3/ul Absolute Basos (auto) 0.1 (0-0.2) 10^3/ul Absolute Nucleated RBC 0.0 10^3/ul Nucleated RBC % 0.1 Result Diagrams: 02/06/19 14:38 02/06/19 14:38 Lab Statement: Any lab studies that have been ordered have been reviewed, and results considered in the medical decision making process. - CT Abd/Pel CT CT Interpretation Completed By: Radiologist Summary of CT Findings: 1. NO FINDINGS TO SUGGEST PERIRECTAL OR PERIANAL ABSCESS. 2. 2.5 CM RIGHT OVARIAN CYST WITH A SMALL AMOUNT OF FREE FLUID WITHIN THE PELVIS AND RIGHT LOWER QUADRANT. 3. NORMAL APPENDIX. Dr. Coombs has reviewed this radiology report. Re-Evaluation - Re-Evaluation First Eval Re-Evaluation Time: 18:15 Comment: Discussed results with the patient and plan for discharge. Patient is feeling better and wants to eat. GIGU Course/Dx - Course Assessment/Plan: This patient is a 33 year old F presenting to ED with a chief complaint of rectal pain since 0300 this morning before going to bed. In the ED course, the patient was given Zofran, Morphine, and fluids. CT abd/pel reveals 1. NO FINDINGS TO SUGGEST PERIRECTAL OR PERIANAL ABSCESS. 2. 2.5 CM RIGHT OVARIAN CYST WITH A SMALL AMOUNT OF FREE FLUID WITHIN THE PELVIS AND RIGHT LOWER QUADRANT. 3. NORMAL APPENDIX. Her inflammatory markers are negative. No findings of abscess on CT. The patient is feeling better in the ED and wants to eat. She will be discharged with dx of right ovarian cyst and rectal pain. She was also given instructions to follow up with her PCP in 2-3 days and Rx for anti-inflammatories and stool softeners. - Diagnoses Differential Diagnoses - Female: Ovarian Cyst, Other - rectal pain Provider Diagnoses: Right ovarian cyst, Rectal pain Discharge - Sign-Out/Discharge Documenting (check all that apply): Patient Departure - discharge Patient Received Moderate/Deep Sedation with Procedure: No - Discharge Plan Condition: Stable Disposition: HOME Prescriptions: Docusate CAP* [Colace Cap*] 100 mg PO BID PRN #20 cap PRN Reason: Constipation Naproxen TAB* [Naprosyn 375 mg TAB*] 375 mg PO Q8H #30 tab Patient Education Materials: Ovarian Cyst (ED), Rectal Pain (ED) Referrals: [facility] [Outside] (Follow up with your primary care physician in 2-3 days.) Additional Instructions: FOLLOW UP WITH YOUR PRIMARY CARE PHYSICIAN IN 2-3 DAYS. SEE REFERRAL. RETURN TO THE EMERGENCY DEPARTMENT FOR CHANGING OR WORSENING SYMPTOMS. - Billing Disposition and Condition Condition: STABLE Disposition: Home - Attestation Statements Document Initiated by Scribe: Yes Documenting Scribe: Dequan Car Provider For Whom Scribe is Documenting (Include Credential): Angel Coombs MD Scribe Attestation: Dequan Mosher, scribed for Angel Coombs MD on 02/07/19 at 0812. Scribe Documentation Reviewed: Yes Provider Attestation: The documentation as recorded by the scribe, Dequan Car accurately reflects the service I personally performed and the decisions made by me, Angel Coombs MD Status of Scribe Document: Viewed
[2019-02-06 15:15] LABS: Urine Appearance Cloudy; Urine Bilirubin Negative (Negative); Urine Blood Negative (Negative); Urine Color Yellow; Urine Glucose Negative (Negative); Urine Ketones Negative (Negative); Urine Nitrite Negative (Negative); Urine Protein Negative (Negative); Urine Specific Gravity 1.011 (1.010-1.030); Urine Urobilinogen Negative (Negative)
[2019-02-06 18:03] VITALS: BP 125/90
== END | disposition home or self-care (01) ==
LOC: ED 14:09
DX: K62.89 Other specified diseases of anus and rectum (principal); N83.201 Unspecified ovarian cyst, right side; I10 Essential (primary) hypertension; F17.210 Nicotine dependence, cigarettes, uncomplicated
CPT/HCPCS: 36415; 74177; 80053; 81003; 83605; 83690; 85025; 86140; 96361; 96374; 99282; A9270-GY; J2270; J2405; Q9967

== ENCOUNTER 2019-04-02 12:58 | Emergency (ER) | payer OTHER ==
[2019-04-02 13:30] LABS: ABS Basophils 0.1 10^3/ul (0-0.2); ABS Eosinophils 0.2 10^3/ul (0-0.6); ABS Lymphocytes 2.4 10^3/ul (1.0-4.8); ABS Monocytes 0.6 10^3/ul (0-0.8); ABS Neutrophils 6.1 10^3/ul (1.5-7.7); Eosinophil % 2.4 %; Hematocrit 44 % (35-47); Hemoglobin 14.8 g/dL (12.0-16.0); Lymphocyte % 25.4 %; Mean Corpuscular HGB Conc 34 g/dL (31-36); Mean Corpuscular Hemoglobin 30 pg (27-31); Mean Corpuscular Volume 87 fL (80-97); Mean Platelet Volume 9.5 fL (7.4-10.4); Nucleated Red Blood Cells % 0.1; Platelet Count 173 10^3/uL (150-450); Red Blood Count 4.97 10^6 /uL (3.70-4.87); Red Cell Distribution Width 14 % (10-15); White Blood Count 9.5 10^3/uL (3.5-10.8)
--- NOTE | 2019-04-02 13:32 | ED ---
Abdominal Pain/Female - HPI Summary HPI Summary: The patient is a 33 y/o F presenting to [facility] with a chief complaint of RLQ pain that radiates to the middle abd starting this morning. 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 The pain had gone away since then and returned this morning. The pain is worst at the RLQ, but there is some pain in the pelvic area as well. The cramping pain is currently rated 5/10 in severity. She additionally c/o nausea without vomiting. She denies fevers, diarrhea, and constipation, but she notes she has been having more frequent BMs than usual. LNMP: two weeks ago. Hx of HTN, asthma, COPD. Surgical hx of tubal ligation. Current every day smoker, no EtOH, CBD use. - History of Current Complaint Chief Complaint: EDAbdPain Stated Complaint: ABD PAIN PER PT` Time Seen by Provider: 04/02/19 13:17 Hx Obtained From: Patient Hx Last Menstrual Period: 2 weeks ago Onset/Duration: Sudden Onset, Lasting Hours - this morning, Still Present Timing: Hours Severity Initially: Mild Severity Currently: Moderate Pain Intensity: 5 Pain Scale Used: 0-10 Numeric Location: Discrete At: RLQ Radiates: Yes Radiates to: Other - middle abd, pelvic region Character: Cramping Aggravating Factor(s): Nothing Alleviating Factor(s): Nothing Associated Signs and Symptoms: Positive: Nausea, Other: - increased in BM frequency. Negative: Fever, Constipation, Vomiting, Diarrhea Allergies/Adverse Reactions: Allergies Allergy/AdvReac Type Severity Reaction Status Date / Time amoxicillin Allergy Rash Verified 04/02/19 13:05 hydrocodone AdvReac Vomiting Verified 04/02/19 13:05 Home Medications: Home Medications Ibuprofen 1,000 mg PO DAILY 04/02/19 [History Confirmed 04/02/19] Symbicort 160/4.5 (NF) 1 puff INH DAILY 04/02/19 [History Confirmed 04/02/19] PMH/Surg Hx/FS Hx/Imm Hx Endocrine/Hematology History: Denies: Hx Anticoagulant Therapy, Hx Diabetes Cardiovascular History: Reports: Hx Hypertension - orthostatic BP, Other Cardiovascular Problems/Disorders - heart murmur Denies: Hx Hypercholesterolemia, Hx Pacemaker/ICD Respiratory History: Reports: Hx Asthma, Hx Chronic Obstructive Pulmonary Disease (COPD) History: Denies: Hx Renal Disease Sensory History: Denies: Hx Contacts or Glasses Opthamlomology History: Denies: Hx Contacts or Glasses Neurological History: Reports: Hx Headaches - TREATS WITH REST Psychiatric History: Reports: Hx Anxiety - NO MEDICATION AT THIS TIME, Hx Depression - NO MEDICATION AT THIS TIME, Hx Community Mental Health [place] - [facility], [place], [place], Hx Suicide Attempt - Once, at age 13., Hx Substance Abuse - Mom tested positive for Cannabis. Baby also., Other Psychiatric Issues/Disorders - Schizoid Personality Disorder Denies: Hx Attention Deficit Hyperactivity Disorder, Hx Eating Disorder, Hx Panic Disorder, Hx Post Traumatic Stress Disorder, Hx Inpatient Treatment, Hx Schizophrenia, Hx Bipolar Disorder, Hx of Violent Episodes Against Others - Surgical History Surgery Procedure, Year, and Place: TUBAL LIGATION Infectious Disease History: No Infectious Disease History: Reports: Hx of Known/Suspected MRSA Denies: History Other Infectious Disease, Traveled Outside the in Last 30 Days - Family History Known Family History: Positive: Respiratory Disease - asthma Negative: Hypertension, Diabetes - Social History Alcohol Use: None Alcohol Amount: recovering alcoholic Hx Substance Use: Yes Substance Use Type: Reports: Other Substance Use Comment - Amount & Last Used: cbd Hx Tobacco Use: Yes Smoking Status (MU): Heavy Every Day Tobacco Smoker Type: Cigarettes Amount Used/How Often: 1/2 PPD Have You Smoked in the Last Year: Yes Review of Systems Negative: Fever Positive: Abdominal Pain - RLQ extending to middle abd, Nausea, Other - POSITIVE : increased stool frequency; NEGATIVE: constipation. Negative: Vomiting, Diarrhea All Other Systems Reviewed And Are Negative: Yes Physical Exam - Summary Physical Exam Summary: VITAL SIGNS: Reviewed. GENERAL: Patient is a well-developed and nourished female who is lying comfortable in the stretcher. Patient is not in any acute respiratory distress. HEAD AND FACE: Normocephalic and atraumatic. EYES: PERRLA, EOMI x 2, No injected conjunctiva. EARS: Hearing grossly intact. Ear canals and tympanic membranes are WNL. MOUTH: Oropharynx within normal limits. NECK: Supple, trachea is midline, no adenopathy, no JVD. CHEST: Symmetric, no tenderness at palpation. LUNGS: Clear to auscultation bilaterally. No wheezing or crackles. CVS: RRR, S1 and S2 present, no murmurs or gallops appreciated. ABDOMEN: Soft, tenderness in the RLQ. No signs of distention. Positive bowel sounds. No rebound, no guarding, and no masses palpated. No abdominal bruit or pulsations. EXTREMITIES: FROM in all major joints, no edema, no cyanosis or clubbing. NEURO: Alert and oriented x 3. No acute neurological deficits. Speech is normal. SKIN: Dry and warm. Triage Information Reviewed: Yes Vital Signs On Initial Exam: Initial Vitals Temp Pulse Resp BP Pulse Ox 97.8 F 94 14 140/113 97 04/02/19 13:03 04/02/19 13:03 04/02/19 13:03 04/02/19 13:03 04/02/19 13:03 Vital Signs Reviewed: Yes Diagnostics - Vital Signs Vital Signs Temp Pulse Resp BP Pulse Ox 04/02/19 13:03 97.8 F 94 14 140/113 97 - Laboratory Result Diagrams: 04/02/19 13:20 04/02/19 13:20 Lab Statement: Any lab studies that have been ordered have been reviewed, and results considered in the medical decision making process. Re-Evaluation - Re-Evaluation First Eval Re-Evaluation Time: 16:05 Comment: The patient has eloped before getting the Abd/Pel CT. Abdominal Pain Fem Course/Dx - Course Course Of Treatment: The patient is a 33 y/o F presenting to [facility] with a chief complaint of RLQ pain that radiates to the middle abd starting this morning. 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 The pain had gone away since then and returned this morning. The pain is worst at the RLQ, but there is some pain in the pelvic area as well. The cramping pain is currently rated 5/10 in severity. She additionally c/o nausea without vomiting. She denies fevers, diarrhea, and constipation, but she notes she has been having more frequent BMs than usual. LNMP: two weeks ago. Hx of HTN, asthma, COPD. Surgical hx of tubal ligation. Current every day smoker, no EtOH, CBD use. In the ED course, the patient was placed on a money counter, IV access was obtained, and IV fluids were started. Blood test results without any significant abnormalities. Urinalysis is negative for UTI. Because the patient is having right lower quadrant pain, we will order an abdominopelvic CT to rule out any intra- abdominal pathology. Before the patient had an abdominal pelvic CT, the patient eloped. She told the nurse that she is tired of waiting; therefore, she decided to walk out. She did not want to wait to sign the AMA form. - Diagnoses Provider Diagnoses: Eloped from emergency department Discharge - Sign-Out/Discharge Documenting (check all that apply): Patient Departure - Patient eloped before signing out AMA. Patient Received Moderate/Deep Sedation with Procedure: No - Discharge Plan Condition: Stable Disposition: ELOPEMENT Referrals: Teddy Diaz MD [Primary Care Provider] - - Billing Disposition and Condition Condition: STABLE Disposition: Elopement - Attestation Statements Document Initiated by Blanca: Yes Documenting Scribe: Geri Wiley Provider For Whom Blanca is Documenting (Include Credential): Dr. Mychal Quiroz MD Scribe Attestation: Geri Mosher scribed for Dr. Mychal Quiroz MD on 04/03/19 at 0754. Scribe Documentation Reviewed: Yes Provider Attestation: The documentation as recorded by the Geri aly accurately reflects the service I personally performed and the decisions made by me, Dr. Mychal Quiroz MD Status of Scribcamlile Document: Viewed
[2019-04-02 13:47] LABS: ALT 8 U/L (7-52); AST 15 U/L (13-39); Albumin 4.1 g/dL (3.2-5.2); Albumin/Globulin Ratio 1.7 (1-3); Alkaline Phosphatase 86 U/L (34-104); Anion Gap 4 mmol/L (2-11); BUN/Creatinine Ratio 7.9 (8-20); Blood Urea Nitrogen 6 mg/dL (6-24); CO2 Carbon Dioxide 25 mmol/L (22-32); Chloride 108 mmol/L (101-111); EGFR African American 106.7 (>60); EGFR Non-African American 88.2 (>60); Globulin 2.4 g/dL (2-4); Glucose 93 mg/dL (70-100); Potassium 3.5 mmol/L (3.5-5.0); Sodium 137 mmol/L (135-145); Total Protein 6.5 g/dL (6.4-8.9)
[2019-04-02 13:53] LABS: HCG Pregnancy < 0.60 mIU/mL
[2019-04-02 14:12] LABS: Urine Appearance Clear; Urine Bilirubin Negative (Negative); Urine Blood Negative (Negative); Urine Color Yellow; Urine Glucose Negative (Negative); Urine Ketones Negative (Negative); Urine Nitrite Negative (Negative); Urine Protein Negative (Negative); Urine Specific Gravity 1.008 (1.010-1.030); Urine Urobilinogen Negative (Negative)
[2019-04-02 14:57] VITALS: BP 107/89
[2019-04-02] MEDS ORDERED: Iohexol 300* (CONTRAST) 10 ML SDV IV ONE (15:49)
== END 2019-04-02 16:10 | disposition left against medical advice (07) ==
LOC: ED 12:58
DX: R10.31 Right lower quadrant pain (principal); R10.2 Pelvic and perineal pain; R11.0 Nausea; I10 Essential (primary) hypertension; J44.9 Chronic obstructive pulmonary disease, unspecified; Z88.5 Allergy status to narcotic agent; Z88.0 Allergy status to penicillin; F17.210 Nicotine dependence, cigarettes, uncomplicated
CPT/HCPCS: 36415; 80053; 81003; 84702; 85025; 86140; 99283